=== PATIENT | female | born 1995 | race Hispanic/Latino ===

== ENCOUNTER 2018-11-01 12:53 | Emergency (ER) | payer SELFPAY ==
--- NOTE | 2018-11-01 13:48 | ER ---
Nurse's Notes [facility] Name: Daiana Hardwick Age: 23 yrs Sex: Female : 1995 Arrival Date: 11/01/2018 Time: 12:56 Bed 28 Private MD: Diagnosis: Irregular menstruation, unspecified Presentation: 11/01 13:04 Presenting complaint: Patient states: i am having some bleeding, it started an hour tw2 ago, 2 weeks ago it was happening, thought it was my period but it wasn't, i am , lmp 09/16/18. Transition of care: patient was not received from another setting of care. Onset of symptoms was November 01, 2018. Risk Assessment: Do you want to hurt yourself or someone else? Patient reports no desire to harm self or others. Initial Sepsis Screen: Does the patient meet any 2 criteria? No. Patient's initial sepsis screen is negative. Does the patient have a suspected source of infection? No. Patient's initial sepsis screen is negative. Care prior to arrival: None. 13:04 Method Of Arrival: Ambulatory tw2 13:04 Acuity: MIGUELANGEL 3 tw2 Triage Assessment: 13:05 General: Appears in no apparent distress. Behavior is crying. Pain: Complains of pain tw2 in left low back and left mid back. GI: Reports nausea, LEFT flank pain. : Reports. : Reports vaginal bleeding that is. 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 - Social history:: Smoking status: . - Ebola Screening: : Patient denies travel to an Ebola-affected area in the 21 days before illness onset. Screenin:10 Abuse screen: Denies threats or abuse. Denies injuries from another. Nutritional ca1 screening: No deficits noted. Tuberculosis screening: No symptoms or risk factors identified. Fall Risk None identified. Assessment: 13:10 General: Appears in no apparent distress. comfortable, Behavior is calm, cooperative, ca1 appropriate for age. Pain: Complains of pain in left lower quadrant Pain radiates to back and left mid back and left low back Pain currently is 10 out of 10 on a pain scale. Pain began 1 day ago. Neuro: Level of Consciousness is awake, alert, obeys commands, Oriented to person, place, time, situation. Cardiovascular: Heart tones S1 S2 present Capillary refill < 3 seconds Patient's skin is warm and dry. Respiratory: Airway is patent Respiratory effort is even, unlabored, Respiratory pattern is regular, symmetrical, Breath sounds are clear bilaterally. GI: Abdomen is flat, non-distended, Bowel sounds present X 4 quads. Abd is soft X 4 quads Abdomen is tender to palpation in left lower quadrant. : Reports vaginal bleeding that is spotty. EENT: No deficits noted. No signs and/or symptoms were reported regarding the EENT system. Derm: Skin is intact, is healthy with good turgor, Skin is pink, warm \T\ dry. Musculoskeletal: Circulation, motion, and sensation intact. Capillary refill < 3 seconds. 13:40 Reassessment: Patient appears in no apparent distress at this time. Patient is alert, ca1 oriented x 3, equal unlabored respirations, skin warm/dry/pink. MILTON Finney at bedside. Vital Signs: 13:05 BP 127 / 85; Pulse 81; Resp 17; Temp 98.9(TE); Pulse Ox 98% on R/A; Weight 72.57 kg tw2 (R); Height 4 ft. 11 in. (149.86 cm); Pain 8/10; 13:45 BP 125 / 82; Pulse 83; Resp 19; Pulse Ox 99% on R/A; ca1 13:05 Body Mass Index 32.32 (72.57 kg, 149.86 cm) tw2 Vitals: 13:43 Heart Tones N/A - UPT neg. ca1 ED Course: 12:56 Patient arrived in ED. mr 13:05 Triage completed. tw2 13:05 Arm band placed on. tw2 13:10 Patient has correct armband on for positive identification. Placed in gown. Bed in low ca1 position. Call light in reach. Side rails up X 1. Pulse ox on. NIBP on. Warm blanket given. 13:10 No provider procedures requiring assistance completed. Patient did not have IV access ca1 during this emergency room visit. 13:15 Lakshmi Hunter FNP-C is PHCP. kb 13:15 Ghulam Strickland MD is Attending Physician. kb 13:34 India Zhao, RN is Primary Nurse. ca1 Administered Medications: No medications were administered Outcome: 13:47 Discharge ordered by . kb 13:56 Discharged to home ambulatory, with family. ca1 13:56 Condition: stable 13:56 Discharge instructions given to patient, Instructed on discharge instructions, follow up and referral plans. Demonstrated understanding of instructions, follow-up care. 13:56 Patient left the ED. ca1 Signatures: Lakshmi Hunter, RANULFOC QUALITY ASSURANCE INTERN-Ivory Castillo Karlie Davis, RN RN tw2 India Zhao, RN RN ca1 Corrections: (The following items were deleted from the chart) 13:18 13:04 Presenting complaint: Patient states: i am having some bleeding, it started an tw2 hour ago, 2 weeks ago it was happening, but it wasn't, i am , lmp 09/16/18 tw2
--- NOTE | 2018-11-01 13:49 | EDPHYS ---
Physician Documentation [facility] Name: Daiana Hardwick Age: 23 yrs Sex: Female : 1995 Arrival Date: 11/01/2018 Time: 12:56 Bed 28 Private MD: ED Physician Ghulam Strickland HPI: 11/01 13:45 This 23 yrs old Female presents to ER via Ambulatory with complaints of kb Vaginal Bleeding, + Preg <12wks. 13:45 The patient presents with a desire for a test, Pt reports lmp kb 09/16/18-09/21/18. States she missed her period in September so she believes she is 6 weeks . Has not taken a test yet. Onset: The symptoms/episode began/occurred today. Modifying factors: The symptoms are alleviated by nothing, the symptoms are aggravated by nothing. Associated signs and symptoms: Pertinent positives: vaginal bleeding. Severity of symptoms: At their worst the symptoms were mild, in the emergency department the symptoms are unchanged. The patient has not experienced similar symptoms in the past. The patient has not recently seen a physician. 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 - Social history:: Smoking status: . - Ebola Screening: : Patient denies travel to an Ebola-affected area in the 21 days before illness onset. ROS: 13:45 Constitutional: Negative for fever, chills, and weight loss, Cardiovascular: Negative kb for chest pain, palpitations, and edema, Respiratory: Negative for shortness of breath, cough, wheezing, and pleuritic chest pain, Abdomen/GI: Negative for abdominal pain, nausea, vomiting, diarrhea, and constipation, Back: Negative for injury and pain, MS/Extremity: Negative for injury and deformity, Skin: Negative for injury, rash, and discoloration, Neuro: Negative for headache, weakness, numbness, tingling, and seizure. 13:45 : Positive for vaginal bleeding, Negative for urinary symptoms. Exam: 13:45 Constitutional: This is a well developed, well nourished patient who is awake, alert, kb and in no acute distress. Head/Face: Normocephalic, atraumatic. Neck: Trachea midline, no thyromegaly or masses palpated, and no cervical lymphadenopathy. Supple, full range of motion without nuchal rigidity, or vertebral point tenderness. No Meningismus. Chest/axilla: Normal chest wall appearance and motion. Nontender with no deformity. No lesions are appreciated. Cardiovascular: Regular rate and rhythm with a normal S1 and S2. No gallops, murmurs, or rubs. Normal PMI, no JVD. No pulse deficits. Respiratory: Lungs have equal breath sounds bilaterally, clear to auscultation and percussion. No rales, rhonchi or wheezes noted. No increased work of breathing, no retractions or nasal flaring. Abdomen/GI: Soft, non-tender, with normal bowel sounds. No distension or tympany. No guarding or rebound. No evidence of tenderness throughout. Skin: Warm, dry with normal turgor. Normal color with no rashes, no lesions, and no evidence of cellulitis. MS/ Extremity: Pulses equal, no cyanosis. Neurovascular intact. Full, normal range of motion. Neuro: Awake and alert, GCS 15, oriented to person, place, time, and situation. Cranial nerves II-XII grossly intact. Motor strength 5/5 in all extremities. Sensory grossly intact. Cerebellar exam normal. Normal gait. Vital Signs: 13:05 BP 127 / 85; Pulse 81; Resp 17; Temp 98.9(TE); Pulse Ox 98% on R/A; Weight 72.57 kg tw2 (R); Height 4 ft. 11 in. (149.86 cm); Pain 8/10; 13:45 BP 125 / 82; Pulse 83; Resp 19; Pulse Ox 99% on R/A; ca1 13:05 Body Mass Index 32.32 (72.57 kg, 149.86 cm) tw2 MDM: 13:16 Patient medically screened. kb 13:43 Data reviewed: vital signs, nurses notes. Data interpreted: Pulse oximetry: on room air kb is 98 %. Interpretation: normal. Counseling: I had a detailed discussion with the patient and/or guardian regarding: the historical points, exam findings, and any diagnostic results supporting the discharge/admit diagnosis, lab results, the need for outpatient follow up, a family practitioner, to return to the emergency department if symptoms worsen or persist or if there are any questions or concerns that arise at home. 11/01 13:35 Order name: Urine Dipstick--Ancillary (enter results) bd 11/01 13:35 Order name: Urine --Ancillary (enter results) bd 11/01 13:16 Order name: Urine Dipstick-Ancillary (obtain specimen); Complete Time: 13:34 kb 11/01 13:16 Order name: Urine Test (obtain specimen); Complete Time: 13:34 kb Administered Medications: No medications were administered Disposition: 15:39 Co-signature as Attending Physician, Ghulam Strickland MD I agree with the assessment and yahir plan of care. Disposition: 11/01/18 13:47 Discharged to Home. Impression: Irregular menstruation, unspecified. - Condition is Stable. - Discharge Instructions: Abnormal Uterine Bleeding, [id number]. - Medication Reconciliation Form, Thank You Letter, Antibiotic Education, Prescription Opioid Use, Work release form form. - Follow up: Emergency Department; When: As needed; Reason: Worsening of condition. Follow up: Private Physician; When: 2 - 3 days; Reason: Recheck today's complaints, Continuance of care, Re-evaluation by your physician. Signatures: Dispatcher [employer] Lakshmi Bentley, FIELD RESEARCH ASSOCIATE-C FIELD RESEARCH ASSOCIATE-Ghulam Yao MD MD cha Wise, Tara, RN RN tw2 India Zhao RN RN ca1 Corrections: (The following items were deleted from the chart) 13:56 13:47 11/01/2018 13:47 Discharged to Home. Impression: Irregular menstruation, ca1 unspecified. Condition is Stable. Forms are Work release form, Medication Reconciliation Form, Thank You Letter, Antibiotic Education, Prescription Opioid Use. Follow up: Emergency Department; When: As needed; Reason: Worsening of condition. Follow up: Private Physician; When: 2 - 3 days; Reason: Recheck today's complaints, Continuance of care, Re-evaluation by your physician. kb
[2018-11-01 14:05] LABS: Urine Blood 3+ (NEG); Urine Glucose NEGATIVE (NEG); Urine Protein NEGATIVE (NEG)
[2018-11-02 03:05] VITALS: BP 125/82; O2SAT 99
[2018-11-02 03:10] VITALS: TEMP 98.9
== END 2018-11-01 13:56 | disposition home or self-care (01) ==
LOC: ER 12:53
DX: N92.6 Irregular menstruation, unspecified (principal)
CPT/HCPCS: 81003; 81025; 99283

== ENCOUNTER 2018-11-04 16:29 | Emergency (ER) | payer SELFPAY ==
--- NOTE | 2018-11-04 17:30 | RAD REPORT ---
EXAM DESCRIPTION: CT - [id number] - 11/04/2018 5:09 pm CLINICAL HISTORY: Syncope, fall, head and neck injury COMPARISON: None. TECHNIQUE: Axial 5 mm thick images of the head were obtained. Axial 2 mm thick images of the cervic al spine were obtained with sagittal and coronal reconstruction images generated and reviewed. All CT scans are performed using dose optimization technique as appropriate and may include automated exposure control or mA/KV adjustment according to patient size. FINDINGS: No intracranial hemorrhage, mass, edema or acute intracranial finding. No suspicion for acute infarct ion. No extra-axial fluid collections. Mastoid air cells and paranasal sinuses are clear. No globe or orbit abnormality seen. Cervical body height and alignment are normal. No disk space narrowing. No fracture or acute bony abn ormality. No paraspinal mass or hematoma. IMPRESSION: Negative CT head examination for acute or significant finding. Negative CT cervical spine examination for acute or significant finding.
[2018-11-04 17:48] LABS: Absolute Lymphocytes (CBC) 1.5 K/uL (0.7-4.9); Absolute Monocytes 0.5 K/uL (0.1-1.3); Absolute Neutrophil 5.4 K/uL (1.8-8.0); Basophils % 0.8 % (0-1.3); Hematocrit 39.1 % (36.0-45.0); Lymphocytes % 19.3 % (15.3-44.8); MPV 10.5 fL (7.6-11.3); Monocytes % 7.1 % (3.3-12.3); RBC Red Blood Cell Count 4.35 M/uL (3.86-4.86)
[2018-11-04 17:54] LABS: Protime INR 1.08
[2018-11-04 19:03] LABS: ALT/SGPT 22 U/L (12-78); AST/SGOT 14 U/L (15-37); Albumin 3.8 g/dL (3.4-5.0); Alkaline Phosphatase 87 U/L (45-117); BUN Blood Urea Nitrogen 18 mg/dL (7-18); Bicarbonate 26 mmol/L (21-32); Bilirubin Direct 0.1 mg/dL (0-0.2); Bilirubin Total 0.3 mg/dL (0.2-1.0); Creatine Phosphokinase 111 U/L (26-192); Glucose Level 77 mg/dL (74-106); Potassium 3.8 mmol/L (3.5-5.1); Protein, Total 7.2 g/dL (6.4-8.2); Sodium Level 145 mmol/L (136-145); Troponin I < 0.02 ng/mL (0.0-0.045)
[2018-11-04 19:03] LABS: Barbiturates NEGATIVE (NEGATIVE); Benzodiazepines NEGATIVE (NEGATIVE); Cocaine NEGATIVE (NEGATIVE); METHAMPHETAM NEGATIVE (NEGATIVE); Methadone NEGATIVE (NEGATIVE); Opiates NEGATIVE (NEGATIVE); Phencyclidine NEGATIVE (NEGATIVE); THC Cannibis NEGATIVE (NEGATIVE)
[2018-11-04 19:41] LABS: Urine Blood NEGATIVE (NEG); Urine Glucose NEGATIVE (NEG); Urine Protein NEGATIVE (NEG)
[2018-11-04] MEDS ORDERED: ACETAMINOPHEN 500 MG TAB ONE (19:58)
--- NOTE | 2018-11-04 20:56 | RAD REPORT ---
EXAM DESCRIPTION: US - Transvaginal Study Probe - 11/04/2018 8:34 pm CLINICAL HISTORY: Hyper menorrhagia COMPARISON: September 2016 TECHNIQUE: Endovaginal sonography was performed. FINDINGS: Endometrial stripe is 5 mm. No focal endometrial or myometrial abnormality. Small nabothia n cysts present. Small follicles are identified in both ovaries. Doppler evaluation shows a normal ov tru blood flow pattern. No suspicious ovarian or adnexal finding. No blood or free fluid in the cul de sac. IMPRESSION: Endovaginal pelvic ultrasound showing no significant or suspicious finding.
[2018-11-04 21:03] LABS: Hematocrit 36.4 % (36.0-45.0)
--- NOTE | 2018-11-04 21:48 | ER ---
Nurse's Notes [facility] Name: Daiana Hardwick Age: 23 yrs Sex: Female : 1995 Arrival Date: 11/04/2018 Time: 16:34 Bed 14 Private MD: Diagnosis: Syncope and collapse;Irregular menstruation, unspecified Presentation: 11/04 16:35 Presenting complaint: EMS states: HEAVY VAGINAL BLEEDING, POSSIBLE MISCARRIAGE, x2 bp DAYS. SYNCOPE TODAY AT WORK. Transition of care: patient was not received from another setting of care. Onset of symptoms is unknown. Risk Assessment: Do you want to hurt yourself or someone else? Patient reports no desire to harm self or others. Initial Sepsis Screen: Does the patient meet any 2 criteria? No. Patient's initial sepsis screen is negative. Does the patient have a suspected source of infection? No. Patient's initial sepsis screen is negative. Care prior to arrival: IV initiated. 18 GA, in the right antecubital area, Glucose check: 101. 16:35 Method Of Arrival: EMS: [facility] bp 16:35 Acuity: MIGUELANGEL 3 bp Triage Assessment: 16:37 General: Appears distressed, comfortable, Behavior is cooperative, appropriate for age, bp anxious. Pain: Denies pain. EENT: No deficits noted. Neuro: Level of Consciousness is awake, alert, obeys commands, Oriented to person, place, time, situation, Appropriate for age. Cardiovascular: No deficits noted. Respiratory: Airway is patent Respiratory effort is even, unlabored, Respiratory pattern is regular, symmetrical. GI: No signs and/or symptoms were reported involving the gastrointestinal system. : Reports vaginal bleeding that is bright red, heavy flow. Derm: No deficits noted. Musculoskeletal: No deficits noted. 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 - Social history:: Smoking status: Patient/guardian denies using tobacco. - Ebola Screening: : Patient negative for fever greater than or equal to 101.5 degrees Fahrenheit, and additional compatible Ebola Virus Disease symptoms Patient denies exposure to infectious person Patient denies travel to an Ebola-affected area in the 21 days before illness onset No symptoms or risks identified at this time. Screenin:46 Abuse screen: Denies threats or abuse. Denies injuries from another. Nutritional bp screening: No deficits noted. Tuberculosis screening: No symptoms or risk factors identified. Fall Risk None identified. Assessment: 16:46 General: SEE TRIAGE NOTE. bp 19:11 Reassessment: Patient appears in no apparent distress at this time. Patient and/or jb4 family updated on plan of care and expected duration. Pain level reassessed. Patient is alert, oriented x 3, equal unlabored respirations, skin warm/dry/pink. family is at the bedside. 20:00 Reassessment: Patient appears in no apparent distress at this time. Patient and/or jb4 family updated on plan of care and expected duration. Pain level reassessed. Patient is alert, oriented x 3, equal unlabored respirations, skin warm/dry/pink. 21:00 Reassessment: Patient appears in no apparent distress at this time. Patient and/or jb4 family updated on plan of care and expected duration. Pain level reassessed. Patient is alert, oriented x 3, equal unlabored respirations, skin warm/dry/pink. 22:00 Reassessment: Patient appears in no apparent distress at this time. Patient and/or jb4 family updated on plan of care and expected duration. Pain level reassessed. Patient is alert, oriented x 3, equal unlabored respirations, skin warm/dry/pink. Vital Signs: 16:37 BP 102 / 78; Pulse 73; Resp 16; Temp 99.0; Pulse Ox 100% ; Weight 68.04 kg; bp 17:54 BP 127 / 51; Pulse 77; Resp 14; Pulse Ox 100% ; bp 18:00 BP 97 / 60 Supine; Pulse 68; Resp 14; Pulse Ox 98% ; bp 18:05 BP 98 / 68 Sitting; Pulse 67; Resp 14; Pulse Ox 96% ; bp 19:05 BP 124 / 65; Pulse 82; Resp 16; Pulse Ox 99% on R/A; jb4 20:35 BP 126 / 68; Pulse 62; Resp 16; Pulse Ox 99% ; jb4 21:30 BP 116 / 77; Pulse 69; Resp 16; Pulse Ox 99% on R/A; jb4 22:00 BP 115 / 77; Pulse 65; Resp 16; Pulse Ox 98% on R/A; jb4 ED Course: 16:34 Patient arrived in ED. bp 16:36 Ghulam Liu PA is PHCP. cp 16:36 Be Canales MD is Attending Physician. cp 16:36 Triage completed. bp 16:46 Arm band placed on. bp 16:46 Patient has correct armband on for positive identification. Bed in low position. Call bp light in reach. Side rails up X2. 16:46 Maintain EMS IV. Dressing intact. Good blood return noted. Site clean \T\ dry. Gauge \T\ bp site: 18 G R AC. 17:09 CT Head C Spine In Process Unspecified. EDMS 17:09 CT completed. Patient tolerated procedure well. Patient moved to CT via stretcher. vr Patient moved back from CT. 17:10 Sacr Live, RN is Primary Nurse. bp 17:22 EKG done, by cytology technologist. reviewed by Ghulam RAY. sm3 17:38 Initial lab(s) drawn, by ks, sent to lab. lt1 18:51 Radiology exam delayed due to test not completed at this time. sg3 19:00 Pulse ox on. NIBP on. jb4 20:27 Primary Nurse role handed off by Scar Live, RN ed1 20:30 Ultrasound completed. Patient tolerated well. 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 sg3 20:34 US Transvaginal Study (Probe) In Process Unspecified. EDMS 20:54 Homar Saenz, RN is Primary Nurse. jb4 22:10 No provider procedures requiring assistance completed. IV discontinued, intact, jb4 bleeding controlled. Administered Medications: 16:40 Drug: NS 0.9% 1000 ml Route: IV; Rate: 1 bolus; Site: right antecubital; bp 19:50 Drug: Tylenol 1000 mg Route: PO; jb4 22:11 Follow up: Response: No adverse reaction; Pain is decreased jb4 Outcome: 21:47 Discharge ordered by . cp 22:10 Discharged to home ambulatory. jb4 22:10 Condition: stable 22:10 Discharge instructions given to patient, family, Instructed on discharge instructions, follow up and referral plans. Demonstrated understanding of instructions, follow-up care. 22:11 Patient left the ED. jb4 Signatures: Dispatcher [employer] EDMS Mcdaniel, Tiara, RN RN ed1 Dayana Blankenship Corey, PA PA cp Bryson, James, RN RN jb4 Scar Live RN RN Lorenza Sparks 3 Saarh Beth Martinez 3 Natalia England 1
--- NOTE | 2018-11-04 21:48 | EDPHYS ---
Physician Documentation [facility] Name: Daiana Hardwick Age: 23 yrs Sex: Female : 1995 Arrival Date: 11/04/2018 Time: 16:34 Bed 14 Private MD: ED Physician Be Canales HPI: 11/04 16:50 This 23 yrs old Female presents to ER via EMS with complaints of Vaginal cp Bleeding, Syncope. 16:50 The patient has experienced syncope, collapsed. cp 16:50 Onset: The symptoms/episode began/occurred just prior to arrival. Duration: This was a cp single episode, that lasted an unknown period of time. EMS reports patient was at work when co-worker observed patient becoming lightheaded and then passing out for unknown duration. 16:50 The patient has been recently seen at the [facility] Emergency cp Department, this week, for unrelated complaints, vaginal bleeding. 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 - Social history:: Smoking status: Patient/guardian denies using tobacco. - Ebola Screening: : Patient negative for fever greater than or equal to 101.5 degrees Fahrenheit, and additional compatible Ebola Virus Disease symptoms Patient denies exposure to infectious person Patient denies travel to an Ebola-affected area in the 21 days before illness onset No symptoms or risks identified at this time. ROS: 16:55 Constitutional: Negative for fever, poor PO intake. cp 16:55 Neuro: Positive for syncope. cp 16:55 Unable to obtain ROS due to altered mental status. Exam: 17:05 Constitutional: The patient appears in no acute distress, alert, awake, cp non-diaphoretic, non-toxic, well developed, well nourished. 17:05 Head/Face: Normocephalic, atraumatic. Eyes: Pupils equal round and reactive to light, cp extra-ocular motions intact. Lids and lashes normal. Conjunctiva and sclera are non-icteric and not injected. Cornea within normal limits. Periorbital areas with no swelling, redness, or edema. ENT: Nares patent. No nasal discharge, no septal abnormalities noted. Tympanic membranes are normal and external auditory canals are clear. Oropharynx with no redness, swelling, or masses, exudates, or evidence of obstruction, uvula midline. Mucous membranes moist. Chest/axilla: Normal chest wall appearance and motion. Nontender with no deformity. No lesions are appreciated. Cardiovascular: Regular rate and rhythm with a normal S1 and S2. No gallops, murmurs, or rubs. Normal PMI, no JVD. No pulse deficits. Respiratory: Lungs have equal breath sounds bilaterally, clear to auscultation and percussion. No rales, rhonchi or wheezes noted. No increased work of breathing, no retractions or nasal flaring. Abdomen/GI: Soft, non-tender, with normal bowel sounds. No distension or tympany. No guarding or rebound. No evidence of tenderness throughout. Back: No spinal tenderness. No costovertebral tenderness. Full range of motion. Skin: Warm, dry with normal turgor. Normal color with no rashes, no lesions, and no evidence of cellulitis. 17:05 Neuro: Orientation: to person, situation, Mentation: able to follow commands, slow to respond, Motor: moves all fours. 17:25 ECG was reviewed by the Attending Physician. cp Vital Signs: 16:37 BP 102 / 78; Pulse 73; Resp 16; Temp 99.0; Pulse Ox 100% ; Weight 68.04 kg; bp 17:54 BP 127 / 51; Pulse 77; Resp 14; Pulse Ox 100% ; bp 18:00 BP 97 / 60 Supine; Pulse 68; Resp 14; Pulse Ox 98% ; bp 18:05 BP 98 / 68 Sitting; Pulse 67; Resp 14; Pulse Ox 96% ; bp 19:05 BP 124 / 65; Pulse 82; Resp 16; Pulse Ox 99% on R/A; jb4 20:35 BP 126 / 68; Pulse 62; Resp 16; Pulse Ox 99% ; jb4 21:30 BP 116 / 77; Pulse 69; Resp 16; Pulse Ox 99% on R/A; jb4 22:00 BP 115 / 77; Pulse 65; Resp 16; Pulse Ox 98% on R/A; jb4 MDM: 16:36 Patient medically screened. cp 17:00 Differential diagnosis: urinary tract infection, anemia, syncope, seizure, intracranial cp bleed, cardiac arrythmia, illegal drug use. 21:46 Data reviewed: vital signs, nurses notes, lab test result(s), EKG, radiologic studies, cp CT scan. 21:46 Test interpretation: by ED physician or midlevel provider: ECG. Counseling: I had a cp detailed discussion with the patient and/or guardian regarding: the historical points, exam findings, and any diagnostic results supporting the discharge/admit diagnosis, lab results, radiology results, to return to the emergency department if symptoms worsen or persist or if there are any questions or concerns that arise at home. Response to treatment: the patient's symptoms have markedly improved after treatment, VSS. Repeat H/H WNL. Patient talking with family and in no apparent distress, and as a result, I will discharge patient. 11/04 16:48 Order name: Acetaminophen; Complete Time: 19:49 cp 11/04 16:48 Order name: Basic Metabolic Panel; Complete Time: 19:49 cp 11/04 16:48 Order name: CBC with Diff; Complete Time: 18:17 cp 05 18:17 Interpretation: Normal except: MCV 89.9; MCH 30.4. cp 11/04 16:48 Order name: ETOH Level; Complete Time: 18:17 cp 11/04 16:48 Order name: Hepatic Function; Complete Time: 19:49 cp 11/04 16:48 Order name: PT-INR; Complete Time: 18:17 cp 11/04 16:48 Order name: Ptt, Activated; Complete Time: 18:17 cp 11/04 16:48 Order name: Salicylate; Complete Time: 19:49 cp 11/04 16:48 Order name: Urine Drug Screen; Complete Time: 19:49 cp 11/04 16:48 Order name: Ckmb; Complete Time: 19:49 cp 11/04 16:48 Order name: CK; Complete Time: 19:49 cp 04 16:48 Order name: Troponin I; Complete Time: 19:49 cp 04 16:48 Order name: Type And Screen; Complete Time: 19:49 cp 0405 18:12 Order name: Urine Dipstick--Ancillary (enter results); Complete Time: 19:49 eb 11/04 16:48 Order name: Urine Test (obtain specimen); Complete Time: 17:53 cp 11/04 16:48 Order name: EKG; Complete Time: 16:48 cp 11/04 16:48 Order name: EKG - Nurse/Tech; Complete Time: 17:19 cp 11/04 16:48 Order name: IV Saline Lock; Complete Time: 17:10 cp 11/04 16:48 Order name: Labs collected and sent; Complete Time: 17:53 cp 11/04 16:48 Order name: Urine Dipstick-Ancillary (obtain specimen); Complete Time: 17:53 cp 11/04 16:48 Order name: Orthostatics; Complete Time: 18:05 cp 04 16:48 Order name: CT Head C Spine; Complete Time: 17:36 cp 11/04 17:36 Interpretation: Reviewed report. cp 11/04 16:48 Order name: IV; Complete Time: 17:11 cp 11/04 18:12 Order name: Urine --Ancillary (enter results); Complete Time: 19:49 eb 11/04 19:51 Order name: US Transvaginal Study (Probe); Complete Time: 21:45 cp 05 20:26 Order name: Hematocrit; Complete Time: 21:45 cp 11/04 20:26 Order name: Hemoglobin; Complete Time: 21:45 cp 05 16:56 Order name: Cath; Complete Time: 17:53 cp EC:25 Rate is 69 beats/min. Rhythm is regular. RI interval is normal. QRS interval is normal. cp QT interval is normal. Interpreted by me. Reviewed by me. Administered Medications: 16:40 Drug: NS 0.9% 1000 ml Route: IV; Rate: 1 bolus; Site: right antecubital; bp 19:50 Drug: Tylenol 1000 mg Route: PO; jb4 22:11 Follow up: Response: No adverse reaction; Pain is decreased jb4 Disposition: 22:30 Chart complete. cp Disposition: 11/04/18 21:47 Discharged to Home. Impression: Syncope and collapse, Irregular menstruation, unspecified. - Condition is Stable. - Discharge Instructions: Abnormal Uterine Bleeding, Syncope, Form - Excuse from Work, School, or Physical Activity. - Medication Reconciliation Form, Thank You Letter, Antibiotic Education, Prescription Opioid Use form. - Follow up: Private Physician; When: 1 - 2 days; Reason: Recheck today's complaints. Addendum: 11/07/2018 07:26 Co-signature as Attending Physician, Be Canales MD I agree with the assessment and k dr plan of care. Signatures: Dispatcher [employer] [facility] Be Canales MD MD [facility] Ghulam Liu PA PA cp Homar Saenz, RN RN jb4 Scar Live RN RN bp Corrections: (The following items were deleted from the chart) 11/04 20:34 18:35 Transvaginal Ob+US.RAD.BRZ ordered. [facility] 22:11 21:47 11/04/2018 21:47 Discharged to Home. Impression: Syncope and collapse; Irregular jb4 menstruation, unspecified. Condition is Stable. Forms are Medication Reconciliation Form, Thank You Letter, Antibiotic Education, Prescription Opioid Use. Follow up: Private Physician; When: 1 - 2 days; Reason: Recheck today's complaints. cp
[2018-11-04 22:36] VITALS: TEMP 99
[2018-11-04 22:50] VITALS: BP 115/77; O2SAT 98
--- NOTE | 2018-11-08 11:26 | EKG ---
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
== END 2018-11-04 22:11 | disposition home or self-care (01) ==
LOC: ER 16:29
DX: R55 Syncope and collapse (principal); N92.6 Irregular menstruation, unspecified
CPT/HCPCS: 36415; 70450; 72125; 76830; 80048; 80076; 80307; 80320; 80329; 81003; 81025; 82550; 82553; 84484; 85014; 85018; 85025; 85610; 85730; 86850; 86900; 86901; 93005; 99285